=== PATIENT | male | born 1990 | race Caucasian/White ===

== ENCOUNTER 2022-06-26 17:05 | Emergency (ER) | payer SELFPAY ==
[2022-06-26 17:19] VITALS: BP 150/94; PULSE 65; RESP 18; TEMP 36.1; O2SAT 100
--- NOTE | 2022-06-26 17:47 | ED.URI ---
HPI - URI/Sore Throat General Chief Complaint: Upper Respiratory Infection Stated Complaint: sorethroat Time Seen by Provider: 06/26/22 17:41 Source: patient Mode of arrival: ambulatory Limitations: no limitations History of Present Illness HPI Narrative: Patient presents today with a 3 day history of sore throat, mild cough, congestion, rhinorrhea. Denies fever. Currently rates the pain 8/10 and has been taking DayQuil, NyQuil, and ibuprofen without much relief. Related Data Home Medications Medication Instructions Recorded Confirmed No Home Medications 06/26/22 06/26/22 Allergies Allergy/AdvReac Type Severity Reaction Status Date / Time No Known Allergies Allergy Verified 06/26/22 17:20 Review of Systems Review of Systems: CONSTITUTIONAL: Denies body aches, fever, chills, or sweats. EYES: Denies visual changes, redness, or discharge. ENT: Denies otalgia.+ sore throat, congestion, rhinorrhea CARDIOVASCULAR: Denies chest pain, palpitations, or edema. RESPIRATORY: Denies dyspnea.+ cough GASTROINTESTINAL: Denies abdominal pain, nausea, vomiting, or diarrhea. GENITOURINARY: Denies dysuria or hematuria. SKIN: Denies rash, itching, or wounds. MUSCULOSKELETAL: Denies back pain, joint pain, or myalgia. NEUROLOGIC: Denies headache, numbness, tingling, or weakness. PSYCH: Denies depression or anxiety. PMFSH Comments At time of signature, I have reviewed and agree with nursing past medical, surgical, social and family history unless otherwise noted. Please see nursing chart for further information. There is no relevant family history pertinent to the presenting complaint Exam Narrative: GENERAL: Well-appearing, well-nourished, and in no acute distress. HEAD: Normocephalic, atraumatic. EYES: EOMI. No redness or drainage. Conjunctivae normal. ENT: Mucous membranes pink and moist. Nares clear. No rhinorrhea. TMs normal bilaterally. Throat severely erythematous with mild edema. No exudate. Uvula midline. NECK: Normal AROM. Supple. No lymphadenopathy. CHEST: No respiratory distress. Clear to auscultation. HEART: Regular rate and rhythm. No murmur appreciated. Normal peripheral pulses. EXTREMITIES: Normal range of motion. No edema. SKIN: Warm, dry, no rash. Capillary refill normal. Normal skin turgor. NEURO: No focal deficits. Alert and oriented x3. Gait steady. PSYCH: Normal affect. No signs of depression or anxiety. Course Course Level of Care: Express Care Visit Vital Signs Vital signs: Vital Signs Temperature 97.0 F L 06/26/22 17:19 Pulse Rate 65 06/26/22 17:19 Respiratory Rate 18 06/26/22 17:19 Blood Pressure 150/94 H 06/26/22 17:19 Pulse Oximetry 100 06/26/22 17:19 Oxygen Delivery Room Air 06/26/22 17:19 Temperature 97.0 F L 06/26/22 17:19 Pulse Rate 65 06/26/22 17:19 Respiratory Rate 18 06/26/22 17:19 Blood Pressure 150/94 H 06/26/22 17:19 Pulse Oximetry 100 06/26/22 17:19 Oxygen Delivery Room Air 06/26/22 17:19 Reviewed. Pt has been instructed to follow up with his PCP regarding his elevated blood pressure today. MDM - URI/Sore Throat MDM Narrative Medical decision making narrative: Rapid strep negative. Culture pending. No prescription medications at this time. Anticipatory guidance given for URI. Differential Diagnosis Differential diagnosis: Likely upper respiratory infection, viral infection, pharyngitis and other (Strep) Lab Data Attestation: I reviewed the patient's lab results. Labs: Strep Screen Presumptive Negative *(Reference Range: Negative)* Critical Care Time Critical Care Time Critical Care Time: No Discharge Plan Discharge Clinical Impression: Upper respiratory infection Qualifiers: URI type: unspecified URI Qualified Code(s): J06.9 - Acute upper respiratory infection, unspecified Patient Disposition: Home, Self-Care Condition: Stable Instructions:
== END 2022-06-26 17:52 | disposition home or self-care (01) ==
PROVIDERS: Emergency Provider Nurse Practitioner; PCP Physician Assistant
DX: J06.9 Acute upper respiratory infection, unspecified (principal)
CPT/HCPCS: 87081; 87880; 99213; G0463

== ENCOUNTER 2023-09-03 15:54 | Emergency (ER) | payer SELFPAY ==
[2023-09-03 15:56] VITALS: BP 185/103; PULSE 105; RESP 20; TEMP 36.3; O2SAT 95
--- NOTE | 2023-09-03 16:02 | ED.WOUNDLAC ---
HPI - Wound/Laceration General Chief Complaint: Wound/Laceration Stated Complaint: right thumb lac Time Seen by Provider: 09/03/23 15:59 Source: patient Mode of arrival: ambulatory Limitations: no limitations History of Present Illness HPI narrative: Patient is a 32-year-old male who presents the ED with report of a laceration to his right thumb. Patient was working with sheet metal when he sustained a laceration to his right MCP joint. Tetanus unknown. No other injuries. No numbness or tingling. Related Data Home Medications Medication Instructions Recorded Confirmed No Home Medications 06/26/22 06/26/22 Allergies Allergy/AdvReac Type Severity Reaction Status Date / Time No Known Allergies Allergy Verified 06/26/22 17:20 Review of Systems Review of Systems: CONSTITUTIONAL: Denies fever, chills, or sweats. SKIN: See HPI NEUROLOGIC: Denies headache, dizziness, numbness, or weakness. All systems reviewed & are unremarkable except as noted in HPI and below Exam Narrative: GENERAL: Well appearing, well-nourished, non-toxic, in no acute distress. HEAD: Normocephalic, atraumatic. RESPIRATORY: Airway patent, respirations nonlabored. CARDIOVASCULAR: Regular rate and rhythm without murmurs, rubs, or gallops. Radial pulses strong and easily palpable MUSCULOSKELETAL: Moves all extremities. No gross deformities. Full range of motion of right fingers. Sensation intact. Capillary refill intact. SKIN: Warm, dry, normal color. 1.5 cm lac to R dorsal hand over area of 1st mcp joint. No active bleeding. NEURO: A&O X3. Speech clear. PSYCHIATRIC: Appropriate mood and affect. Normal interaction. Course Vital Signs Vital signs: Vital Signs Temperature 97.4 F L 09/03/23 15:56 Pulse Rate 105 H 09/03/23 15:56 Respiratory Rate 09/03/23 15:56 Blood Pressure 185/103 H 09/03/23 15:56 Pulse Oximetry 95 09/03/23 15:56 Oxygen Delivery Room Air 09/03/23 15:56 Temperature 97.4 F L 09/03/23 15:56 Pulse Rate 105 H 09/03/23 15:56 Respiratory Rate 09/03/23 15:56 Blood Pressure 185/103 H 09/03/23 15:56 Pulse Oximetry 95 09/03/23 15:56 Oxygen Delivery Room Air 09/03/23 15:56 MDM - Wound/Laceration MDM Narrative Medical decision making narrative: Neurovascularly intact. Laceration repaired without complications. Tetanus updated. Patient given wound care instructions and reasons to return. Discharged in stable condition. Medical Records Attestation: I reviewed the patient's medical records. Discharge Plan Discharge Clinical Impression: Laceration of right hand Qualifiers: Encounter type: initial encounter Foreign body presence: without foreign body Qualified Code(s): S61.411A - Laceration without foreign body of right hand, initial encounter Patient Disposition: Home, Self-Care Condition: Stable Instructions: Antibiotic Form, Care For Your Stitches (ED), Laceration (ED) Additional Instructions: Return to the ED or visit an urgent care or your PCP for follow-up and wound check/suture removal in 10 to 14 days. Keep the wound as dry as possible for 24 hours. You may remove the bandage after 24 hours and wash with simple soap and water, but do not scrub. Return to the ED if you experience uncontrolled bleeding, fever, chills, pus-like drainage, or redness/swelling/warmth surrounding the wound, as these could be signs of an infection. Prescriptions: No Action No Home Medications Follow-up/Referrals: Edilma,JOSELYN Anderson [Primary Care Provider] - Time of Disposition: 16:52
[2023-09-03] MEDS: TETANUS,DIPHTHERIA,AC PERTUSSIS ADULT (0.5 ML) BOOSTRIX IM (16:57)
[2023-09-03] MEDS: LIDOCAINE HCL 1% LOCAL INJ 10 ML VIAL 5 ML INFILTRATE (16:59)
[2023-09-03 17:13] VITALS: BP 150/94; PULSE 84; RESP 20; O2SAT 97
== END 2023-09-03 17:27 | disposition home or self-care (01) ==
PROVIDERS: Emergency Provider Physician Assistant; PCP Physician Assistant
DX: S61.011A Laceration without foreign body of right thumb without damage to nail, initial encounter (principal); Z23 Encounter for immunization; W26.8XXA Contact with other sharp object(s), not elsewhere classified, initial encounter
CPT/HCPCS: 12001; 90471; 90715; 99282